=== PATIENT | male | born 1965 | race Caucasian/White ===

== ENCOUNTER 2017-02-17 19:32 | Inpatient (IN) ==
--- NOTE | 2017-02-17 20:01 | Emergency Department Note ---
Disposition Clinical Impression: Dehydration, Hyperglycemia Nausea and vomiting Qualifiers: Vomiting type: unspecified Vomiting Intractability: non-intractable Qualified Code(s): R11.2 - Nausea with vomiting, unspecified Disposition: Admitted As Inpatient Condition: Fair Forms: ED Satisfaction Letter, Work/School Release Time of Disposition: 22:11 General Adult HPI - General Chief complaint: ED Abdominal Pain Stated complaint: Abnormal labs Time Seen by Provider: 02/17/17 19:51 Source: patient, family Limitations: no limitations Nursing Notes Reviewed: Yes Vital Signs Reviewed: Yes - History of Present Illness HPI Narrative: Mr. Asher, a 51-year-old male, presents from home after a phone call from his urologist, Dr. Britt, who advised him to come to emergency department for, "abnormal labs." Patient has had nausea with persistent vomiting onset Friday evening. Patient believed he had a nephrolithiasis however his urologist said he does not have a nephrolithiasis. He has had decreased by mouth intake since. No coffee-ground emesis, no hematemesis. PMH: GERD, nephrolithiasis,, diabetes ROS: Positive: Nausea, vomiting, epigastric abdominal pain Negative: Fever, chills, diarrhea, constipation, chest pains, palpitations, dyspnea, unusual back pains, recent travel Pain Scale: 6 - Related Data Allergies Allergy/AdvReac Type Severity Reaction Status Date / Time No Known Allergies Allergy Verified 02/17/17 19:43 All systems ED: reviewed and negative except as stated. Review of Systems: As Per HPI Past Medical History - Past Medical History Medical history: Reports: diabetes, kidney stones Surgical history: Reports: herniorrhaphy Psychiatric history: Reports: no psych history - Social History Smoking Status: Current every day smoker Alcohol use: Reports: none Drug use: Reports: none Physical Exam Vital Signs Reviewed General: Patient is alert, oriented, and in no acute distress. HEENT: No facial asymmetry. Head is normocephalic and atraumatic. Oral mucosa tacky. Trachea midline. Cardiovascular: Heart regular rate and rhythm without clicks, rubs, gallops, or murmurs. No JVD. PMI nondisplaced. Bilateral radial pulses 2/4 equal. No pedal edema. Respiratory: Symmetric chest rise with good respiratory effort. Bilateral breath sounds are clear without wheezing, crackles, or rhonchi. Abdomen: Bowel sounds present normoactive x-4 quadrants. Abdomen is soft, nondistended, and nontender. No organomegaly noted. Neuro: GCS 15. Psych: Patient's affect is appropriate for situation. - General Limitations: no limitations General appearance: alert, in no apparent distress Course Course Narrative: Patient's nausea improved with IV Zofran. We will continue IV rehydration. He also has hiccups, will provide Thorazine for symptomatic management. I discussed with the patient and his the option of discharge home with by mouth Zofran and by mouth rehydration versus admission. Patient still clinically appears dehydrated and prefers admission. Patient is hyperglycemic, alkalotic, with serum ketones. Will provide 10 units of regular insulin subcutaneous with continued IV rehydration. I discussed the patient with the admitting hospitalist, Dr. Chacko, who agrees to accept the patient for continued evaluation and management. Vital Signs Temperature 98.8 F 02/17/17 19:43 Pulse Rate 124 02/17/17 19:43 Respiratory Rate 18 02/17/17 19:43 Blood Pressure 146/84 02/17/17 19:43 O2 Sat by Pulse Oximetry 94 02/17/17 19:43 Temperature 98.8 F 02/17/17 19:43 Pulse Rate 85 02/17/17 21:42 Respiratory Rate 18 02/17/17 21:42 Blood Pressure 149/92 02/17/17 21:42 O2 Sat by Pulse Oximetry 95 02/17/17 21:42 Oxygen Delivery Oxygen Delivery Room Air Medical Decision Making - Lab Data Result diagrams: 02/17/17 20:26 02/17/17 20:26 Lab Results 02/17/17 02/17/17 02/17/17 Range/Units 19:48 20:26 20:26 WBC 21.3 H (4.3-11.1) K/mcL RBC 6.08 H (4.19-5.50) M/mcL Hgb 16.8 (12.9-16.9) g/dL Hct 50.0 (37.5-50.1) % MCV 82.2 L (83.0-100.0) fL MCH 27.6 L (28.0-33.3) pg MCHC 33.6 (31.6-35.5) g/dL RDW 12.4 (11.5-14.5) % Plt Count 391 (140-400) K/mcL MPV 9.7 (9.4-12.4) fL Immature Gran % 0.7 (0-4) % Seg Neutrophils % 85.2 % Lymphocytes % 6.4 % Monocytes % 7.5 % Eosinophils % 0.0 % Basophils % 0.2 % Neutrophils # 18.2 H (1.6-8.9) K/mcL Lymphocytes # 1.4 (0.6-4.6) K/mcL Monocytes # 1.6 H (0.0-1.3) K/mcL Eosinophils # 0.0 (0.0-0.6) K/mcL Basophils # 0.0 (0.0-0.2) K/mcL VBG pH (7.32-7.42) pH Units VBG pCO2 (41-51) mmHg VBG pO2 (25-50) mmHg VBG HCO3 (21-27) mEq/L Sodium 135 L (136-145) mEq/L Potassium 3.5 (3.5-4.5) mEq/L Chloride 87 L (98-109) mEq/L Carbon Dioxide 32 H (19-29) mEq/L BUN 41 H (8-26) mg/dL Creatinine 1.20 (0.72-1.25) mg/dL Est GFR ( Amer) > 60 (> 60) Est GFR (Non-Af Amer) > 60 (> 60) BUN/Creatinine Ratio 34 H (6-26) Glucose 396 H (70-99) mg/dL POC Glucose 363 H (58-89) Calculated Osmolality 307 H (280-300) Calcium 9.9 (8.6-10.8) mg/dL Magnesium (1.6-2.6) mg/dL Total Bilirubin 1.1 (0.2-1.2) mg/dL AST 10 (5-34) Units/L ALT 10 (0-55) Units/L Alkaline Phosphatase 154 H (38-126) Units/L Serum Total Protein 8.6 H (6.0-8.3) g/dL Albumin 3.8 (3.5-5.0) g/dL Globulin 4.8 H (2.4-3.5) g/dL Albumin/Globulin Ratio 0.8 L (1.1-2.2) Lipase 24 (8-78) Units/L Beta-Hydroxybutyric Acd 1.45 H (0.02-0.27) mmol/L 02/17/17 02/17/17 Range/Units 20:26 20:47 WBC (4.3-11.1) K/mcL RBC (4.19-5.50) M/mcL Hgb (12.9-16.9) g/dL Hct (37.5-50.1) % MCV (83.0-100.0) fL MCH (28.0-33.3) pg MCHC (31.6-35.5) g/dL RDW (11.5-14.5) % Plt Count (140-400) K/mcL MPV (9.4-12.4) fL Immature Gran % (0-4) % Seg Neutrophils % % Lymphocytes % % Monocytes % % Eosinophils % % Basophils % % Neutrophils # (1.6-8.9) K/mcL Lymphocytes # (0.6-4.6) K/mcL Monocytes # (0.0-1.3) K/mcL Eosinophils # (0.0-0.6) K/mcL Basophils # (0.0-0.2) K/mcL VBG pH 7.49 H (7.32-7.42) pH Units VBG pCO2 53 H (41-51) mmHg VBG pO2 65 H (25-50) mmHg VBG HCO3 40 H (21-27) mEq/L Sodium (136-145) mEq/L Potassium (3.5-4.5) mEq/L Chloride (98-109) mEq/L Carbon Dioxide (19-29) mEq/L BUN (8-26) mg/dL Creatinine (0.72-1.25) mg/dL Est GFR ( Amer) (> 60) Est GFR (Non-Af Amer) (> 60) BUN/Creatinine Ratio (6-26) Glucose (70-99) mg/dL POC Glucose (58-89) Calculated Osmolality (280-300) Calcium (8.6-10.8) mg/dL Magnesium 2.3 (1.6-2.6) mg/dL Total Bilirubin (0.2-1.2) mg/dL AST (5-34) Units/L ALT (0-55) Units/L Alkaline Phosphatase (38-126) Units/L Serum Total Protein (6.0-8.3) g/dL Albumin (3.5-5.0) g/dL Globulin (2.4-3.5) g/dL Albumin/Globulin Ratio (1.1-2.2) Lipase (8-78) Units/L Beta-Hydroxybutyric Acd (0.02-0.27) mmol/L Attestation Statement - Attestation Attestation: I examined this patient and my medical decision-making was reviewed with the Resident Physician. I agree with the documented findings, disposition and treatment plan as described except to the extent set forth below. [id number] time provided Patient clutching an emesis bag at the time of my exam. He was sent at the recommendation of the urologist due to abnormal labs. Labs dated 02/17/17 reviewed by me including CBC and chemistry profile.
[2017-02-17] MEDS ORDERED: Ondansetron 4 MG/2 ML VIAL IVP ONE (20:05)
[2017-02-17] MEDS ORDERED: 0.9 % Sodium Chloride 1,000 ML IVC ONE ×2 (20:05→21:42)
[2017-02-17] MEDS ORDERED: Famotidine 20 MG/2 ML VIAL IVP ONE (20:07)
[2017-02-17 20:40] LABS: Basophils % 0.2 %; Hemoglobin 16.8 g/dL (12.9-16.9); Immature Granulocytes % 0.7 % (0-4); Lymphocytes # 1.4 K/mcL (0.6-4.6); Lymphocytes % 6.4 %; Mean Corpuscular HGB Conc 33.6 g/dL (31.6-35.5); Mean Corpuscular Hemoglobin 27.6 pg (28.0-33.3); Mean Corpuscular Volume 82.2 fL (83.0-100.0); Mean Platelet Volume 9.7 fL (9.4-12.4); Monocytes # 1.6 K/mcL (0.0-1.3); Monocytes % 7.5 %; Neutrophils # 18.2 K/mcL (1.6-8.9); Platelet Count 391 K/mcL (140-400); Red Blood Count 6.08 M/mcL (4.19-5.50); Red Cell Distribution Width 12.4 % (11.5-14.5); Segmented Neutrophils % 85.2 %
[2017-02-17 20:50] LABS: VBG HCO3 40 mEq/L (21-27); VBG PCO2 53 mmHg (41-51); VBG PH 7.49 pH Units (7.32-7.42); VBG PO2 65 mmHg (25-50)
[2017-02-17 20:56] LABS: Alanine Aminotransferase 10 Units/L (0-55); Albumin 3.8 g/dL (3.5-5.0); Albumin/Globulin Ratio 0.8 (1.1-2.2); Alkaline Phosphatase 154 Units/L (38-126); Aspartate Amino Transferase 10 Units/L (5-34); BUN/Creatinine Ratio 34 (6-26); Bilirubin,Total 1.1 mg/dL (0.2-1.2); Blood Urea Nitrogen 41 mg/dL (8-26); Calcium 9.9 mg/dL (8.6-10.8); Carbon Dioxide 32 mEq/L (19-29); Chloride 87 mEq/L (98-109); Globulin 4.8 g/dL (2.4-3.5); Glucose 396 mg/dL (70-99); Lipase 24 Units/L (8-78); Osmolality,Calculated 307 (280-300); Potassium 3.5 mEq/L (3.5-4.5); Sodium 135 mEq/L (136-145); Total Protein 8.6 g/dL (6.0-8.3); eGFR For African Americans > 60 (> 60); eGFR For Non-African Americans > 60 (> 60)
[2017-02-17 21:30] LABS: Beta-Hydroxybutyric Acid 1.45 mmol/L (0.02-0.27)
[2017-02-17] MEDS ORDERED: chlorproMAZINE 25 MG TABLET PO STA (21:30)
[2017-02-17] MEDS ORDERED: Insulin Regular, Human 100 UNIT/ML SQ ONE (21:55)
[2017-02-17 22:27] LABS: Bilirubin,Urine Negative (Negative); Blood,Urine Negative (Negative); Clarity,Urine Clear (Clear); Color,Urine Yellow (Yellow); Glucose,Urine (UA) >=1000 mg/dL (Normal); Ketones,Urine 15 mg/dL (Negative); Leukocyte Esterase,Urine Negative (Negative); Nitrite,Urine Negative (Negative); Protein,Urine 30 mg/dL (Neg-Trace); Specific Gravity,Urine > 1.030 (1.010-1.025); Urobilinogen,Urine Normal (Normal)
[2017-02-17 22:29] LABS: Bacteria,Urine None Seen per hpf (None-Few); Hyaline Casts,Urine None Seen per lpf (None-Few); RBC,Urine 0-3 per hpf (0-3); Squamous Epithelial Cell,Urine Moderate per lpf (None-Few); WBC,Urine 0-3 per hpf (0-3)
[2017-02-18] MEDS ORDERED: 0.9 % Sodium Chloride 1,000 ML IVC ONE (00:20)
--- NOTE | 2017-02-18 00:53 | Internal Med History&Physical ---
<Joe Lopez - Last Filed: 02/18/17 01:23> Date of Encounter: 02/18/17 Time of Encounter: 00:49 Assessment and Plan (1) DKA (diabetic ketoacidoses) Current visit: Yes Status: Acute - BS of 396 on admission, A1c pending - Acid base showing mixed anion gap acidosis with metabolic alkalosis - betahydroxybutryic acid of 1.27, AG of 16. - IV insulin drip with DKA protocol. Running D5 NS with 10 mEq of K at 150 - K of 3.5, Elevated WBC in 23s - BMPs q4 hours - Possible brought on by viral gastroenteritis. Qualifiers: Diabetes mellitus type: type 2 Diabetes mellitus complication detail: without coma Qualified Code(s): E13.10 - Other specified diabetes mellitus with ketoacidosis without coma (2) Nausea and vomiting Current visit: Yes Status: Acute - Possibly secondary to viral gastroenteritis - Contributing to metabolic alkalosis with contraction - Resolved with Zofran. Still dehydrated clinically. Will continue IV fluids per DKA protocol above. Qualifiers: Vomiting type: unspecified Vomiting Intractability: non-intractable Qualified Code(s): R11.2 - Nausea with vomiting, unspecified (3) Dehydration Current visit: Yes Status: Acute - Fluids running for DKA protocol above. (4) DM type 2 (diabetes mellitus, type 2) Current visit: Yes Status: Chronic - Hyperglycemic in DKA - A1c pending - Pt admits to poor diet control, not taking BS - Diabetic education consult - Management as above. - Pt states compliance with metformin. 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 Asher is a 51 year old male with past medical history of type 2 diabetes presents emergency department with a complaint of nausea and vomiting 3-4 days. He states this had almost continuous vomiting today without evidence of hematemesis. He is also complaining of decreased oral intake during this time. No complaints of diarrhea or constipation, last bowel movement on Friday. Denies any symptoms of fevers, chills, chest pain, shortness of breath, numbness, tingling. Denies any sick contacts or recent travel. He does admit to poor glycemic control. He does not monitor his diet, or check his blood sugars however he does state that he takes his metformin as prescribed. In the emergency department, vital signs are significant for a pulse of 124. Labs were significant for WBC of 21.3, venous blood gas showing pH 7.49, CO2 of 53, HCO3 of 40. Glucose of 396, osmolality of 307, bicarbonate 32, negative lipase, beta hydroxybutyric acid of 1.45. UA shows greater than 1000 glucose, ketones 15. Chest x-ray was negative for acute cardiopulmonary disease. Past Med Surg Social Fam HX - Past Medical History Medical history: diabetes, kidney stones Psychiatric history: no psych history - Past Surgical History Surgical History: herniorrhaphy - Social History Smoking Status: Current every day smoker Smokeless Tobacco Status: No Alcohol use: none Drug use: none - Family History Mother Adopted: [place]: Anca Wesley Age: 74 Family Member Ethnicity: Non- Living Status: Still Living Hx Family Cardiac Disorders: No Hx Family Respiratory Disorders: No Hx Family Cancer: No Hx Family GI Disorders: No Hx Family Genitourinary Disorders: No Hx Family Endocrine Disorder: No Hx Family Musculoskeletal Disorders: No Hx Family Neuromuscular Disorders: No Hx Family Neurologic Disorders: No Hx Family HEENT Disorders: No Hx Family Autoimmune Disorders: No Hx Family Reproductive Disorders: No Hx Family Psychosocial Disorders: No Hx Family Medical Disorders: No Internal Medicine - H&P: Meds Promethazine [Phenergan] 25 mg PO Q6H PRN 02/17/17 [History] Sucralfate [Carafate] 1 gm PO QID 02/17/17 [History] metFORMIN [Glucophage] 1,000 mg PO BID 02/17/17 [History] 3 Allergy/AdvReac Type Severity Reaction Status Date / Time No Known Allergies Allergy Verified 02/17/17 19:43 All Systems PM: A 10-system review of systems was performed and is negative for pertinent findings except as documented above in the HPI. - Constitutional Constitutional: weakness, no anorexia, no chills, no fatigue, no fever(s), no lethargy - Cardiovascular Cardiovascular ROS IM: no chest pain, no diaphoresis, no dyspnea, no dyspnea on exertion, no edema, no lightheadedness - Respiratory Respiratory: no cough, no dyspnea, no dyspnea on exertion - Gastrointestinal Gastrointestinal: constipation, early satiety, nausea, vomiting, no abdominal pain, no diarrhea, no hematemesis, no hematochezia, no melena - Genitourinary Genitourinary ROS male: no dysuria - Musculoskeletal Musculoskeletal ROS IM: no numbness, no tingling - Integumentary Integumentary IM: no rash - Neurological Neurological ROS: weakness, no focal weakness, no headache(s), no numbness, no tingling - Constitutional Vitals: Temp Pulse Resp BP Pulse Ox 98.0 F 85 17 164/85 94 02/18/17 00:13 02/18/17 00:13 02/18/17 00:13 02/18/17 00:13 02/18/17 00:13 Exam: Gen.: Vitals noted. No acute distress. AAOx3. 1-year-old male resting comfortably in bed HEENT: PERRL, oropharynx clear, Normocephalic, atraumatic. Dry mucous membranes Cardiac: RRR, no murmur, +S1/S2 Pulmonary: CTA bilaterally, no wheezes, rales or rhonchi, equal chest expansion Abdomen: soft, mildly tender in epigastric region, BS noted, no guarding MSK: ROM intact, no joint swelling noted Extremities: no BLE edema, nontender calf, no cyanosis or clubbing Neuro: A&Ox3, moves all extremities, no focal deficits Psych: Appropriate mood and behavior Internal Med - H&P Results - Labs CBC & Chem 7: 02/17/17 20:26 02/17/17 20:26 <Crispin Ruelas H - Last Filed: 02/18/17 01:58> Date of Encounter: 02/18/17 Internal Medicine - H&P: HPI History of present illness: Mr. Asher is a 51 year old male All Systems PM: A 10-system review of systems was performed and is negative for pertinent findings except as documented above in the HPI. - Constitutional Vitals: Temp Pulse Resp BP Pulse Ox 98.0 F 85 17 164/85 94 02/18/17 00:13 02/18/17 00:13 02/18/17 00:13 02/18/17 00:13 02/18/17 00:13 Internal Med - H&P Results - Labs CBC & Chem 7: 02/17/17 20:26 02/17/17 20:26 - Attending Attestation Intractable nausea and vomiting secondary to viral gastroenteritis, DKA Insulin drip, start D5 with half normal saline and 10 mEq of KCl at 150 mL per hour Dehydration Time spent on this admission 40 minutes. Protonix IV for GI prophylaxis. The patient will be admitted as inpatient, expected stay more than 2 midnights. Full code. I examined this patient and my medical decision-making was reviewed with the Resident Physician. I agree with the documented findings, disposition and treatment plan as described except to the extent set forth below.
[2017-02-18] MEDS ORDERED: *HR* HYDROcodone/Acet 5/325 mg TABLET PO PRN (00:55)
[2017-02-18] MEDS ORDERED: Ondansetron 4 MG/2 ML VIAL IVP PRN (00:55)
[2017-02-18] MEDS ORDERED: Acetaminophen 325 MG TABLET PO PRN (00:55)
[2017-02-18] MEDS ORDERED: Naloxone 0.4 MG/ML INJ IVP PRN (00:55)
[2017-02-18] MEDS ORDERED: *HR* Dextrose 50 % in Water (Syg) 50 ML SYRINGE IVP PRN (00:57)
[2017-02-18] MEDS ORDERED: Dextrose Gel 15 GM PO PRN ×3 (00:57→11:10)
[2017-02-18] MEDS ORDERED: D5% in Water 1,000 ML IVC PRN (00:57)
[2017-02-18] MEDS ORDERED: Insulin Human Regular 100 UNIT in 0.9 % Sodium Chloride 100 ML IVC SCH (01:30)
[2017-02-18 02:19] LABS: Potassium 3.5 mEq/L (3.5-4.5); Sodium 137 mEq/L (136-145)
[2017-02-18 02:20] LABS: BUN/Creatinine Ratio 40 (6-26); Blood Urea Nitrogen 31 mg/dL (8-26); Carbon Dioxide 27 mEq/L (19-29); Chloride 100 mEq/L (98-109); Glucose 209 mg/dL (70-99); Hemoglobin A1C 9.1 %; Osmolality,Calculated 297 (280-300); eGFR For African Americans > 60 (> 60); eGFR For Non-African Americans > 60 (> 60)
[2017-02-18 02:22] LABS: Calcium 8.4 mg/dL (8.6-10.8)
[2017-02-18] MEDS: D5% in 0.45% NACL w KCl 10 MEQ/1,000 ML MLS IVC SCH ×2 (02:29→09:23)
[2017-02-18] MEDS: Pantoprazole 40 MG VIAL IVP SCH (03:33)
[2017-02-18] MEDS: *HR* Heparin 5,000 UNIT/ML VIAL SQ SCH ×2 (06:23→17:36)
[2017-02-18] MEDS ORDERED: Insulin LISPRO 300 UNITS/3 ML VIAL SQ SCH (07:30)
[2017-02-18 08:17] LABS: Basophils % 0.2 %; Eosinophils # 0.1 K/mcL (0.0-0.6); Eosinophils % 0.4 %; Hematocrit 44.5 % (37.5-50.1); Hemoglobin 14.4 g/dL (12.9-16.9); Immature Granulocytes % 0.5 % (0-4); Immature Platelets 2.8 % (1.1-6.1); Lymphocytes # 2.3 K/mcL (0.6-4.6); Lymphocytes % 13.3 %; Mean Corpuscular HGB Conc 32.4 g/dL (31.6-35.5); Mean Corpuscular Volume 83.5 fL (83.0-100.0); Mean Platelet Volume 9.6 fL (9.4-12.4); Monocytes # 1.6 K/mcL (0.0-1.3); Neutrophils # 13.4 K/mcL (1.6-8.9); Platelet Count 302 K/mcL (140-400); Red Blood Count 5.33 M/mcL (4.19-5.50); Red Cell Distribution Width 12.4 % (11.5-14.5); Segmented Neutrophils % 76.6 %
[2017-02-18 08:47] LABS: BUN/Creatinine Ratio 27 (6-26); Blood Urea Nitrogen 21 mg/dL (8-26); Calcium 8.5 mg/dL (8.6-10.8); Carbon Dioxide 26 mEq/L (19-29); Chloride 102 mEq/L (98-109); Glucose 209 mg/dL (70-99); Osmolality,Calculated 293 (280-300); Sodium 137 mEq/L (136-145); eGFR For African Americans > 60 (> 60); eGFR For Non-African Americans > 60 (> 60)
[2017-02-18] MEDS: Sucralfate 1 GM TABLET PO SCH ×4 (09:25→20:55)
[2017-02-18] MEDS: Insulin LISPRO 300 UNITS/3 ML VIAL SQ SCH ×3 (11:59→20:59)
--- NOTE | 2017-02-18 14:27 | Internal Med Progress Note ---
Date of Encounter: 02/18/17 Time of Encounter: 11:50 - Assessment and plan (1) DKA (diabetic ketoacidoses) Current Visit: Yes Status: Acute Assessment and plan: Type 2 diabetes mellitus, [id number], hypoglycemia - with diabetic ketoacidosis without coma - DKA now improved, possibly brought on by viral gastroenteritis Continue IV fluids, insulin sliding scale, IV insulin has been discontinued, anion gap is now closed, ADA diet DKA protocol has been followed Chest x-ray - no acute cardiopulmonary process EKG - sinus tachycardia with no acute ST-T changes Beta hydroxybutyric acid - 1.5 HbA1c - 9.1 Cardiac monitoring, labs in a.m., monitor closely, transfer to regular floor Qualifiers: Diabetes mellitus type: type 2 Diabetes mellitus complication detail: without coma Qualified Code(s): E13.10 - Other specified diabetes mellitus with ketoacidosis without coma (2) Nausea and vomiting Current Visit: Yes Status: Acute Assessment and plan: Probable acute viral gastroenteritis - causing nausea and vomiting with dehydration - symptoms now improved Continue IV fluids, IV Protonix, IV Zofran as needed Continue Carafate Patient is now tolerating oral diet Qualifiers: Vomiting type: unspecified Vomiting Intractability: non-intractable Qualified Code(s): R11.2 - Nausea with vomiting, unspecified (3) DVT prophylaxis Current Visit: Yes Status: Acute Assessment and plan: Continue heparin subcutaneous - Time Spent With Patient 25 - 35 minutes - Subjective Interval history: Examined this morning. Patient is now awake and alert. Not in any distress. Denies chest pain or shortness of breath. No fever. Hemodynamically stable. Sitting up comfortably and tolerating diet. No other acute events or complaints. Admitted for DKA last night. Anion gap is now closed. IV insulin has been stopped. Patient is currently on subcutaneous insulin. Electrolyte abnormalities and now improved. HbA1c is 9.1. Patient does admit to noncompliance with medication and diet. - Constitutional Vitals: Temp Pulse Resp BP Pulse Ox 98.3 F 78 14 163/94 96 02/18/17 12:25 02/18/17 12:00 02/18/17 12:00 02/18/17 12:00 02/18/17 12:00 General appearance: Present: cooperative, A&O X 3, pleasant, no acute distress, underweight, answers questions appropriately - Head Head exam: Present: atraumatic - Eye Eye exam: Present: EOMI - ENT ENT exam: Present: mucous membranes dry - Respiratory Respiratory exam: Present: CTAB. Absent: accessory muscle use, chest wall tenderness, rales, rhonchi, wheezes, tachypnea - Cardiovascular Cardiovascular exam: Present: RRR, +S1, +S2 - GI/Abdominal GI/Abdominal exam: Present: soft. Absent: distended, firm, guarding, tenderness - Extremities Exam Extremities exam: Present: radial pulses palpable and symmetrical. Absent: calf tenderness, cyanotic, pedal edema - Neurological Exam Neurological exam: Present: alert, oriented X3, no focal deficits. Absent: facial droop, speech deficit - Psychiatric Psychiatric exam: Present: flat affect Internal Medicine: Result - Labs CBC & Chem 7: 02/18/17 07:59 02/18/17 07:59 Labs: Short CBC 02/18/17 Range/Units 07:59 WBC 17.5 H (4.3-11.1) K/mcL Hgb 14.4 D (12.9-16.9) g/dL Hct 44.5 (37.5-50.1) % Plt Count 302 (140-400) K/mcL Neutrophils # 13.4 H (1.6-8.9) K/mcL BMP 02/18/17 07:59 Sodium 137 Potassium 4.0 Chloride 102 Carbon Dioxide 26 BUN 21 D Creatinine 0.79 Glucose 209 H Calcium 8.5 L Consult Discharge Plan - Plan Referrals: Hardeep Sumner Jr, MD [Primary Care Provider] -
[2017-02-19] MEDS: Insulin LISPRO 300 UNITS/3 ML VIAL SQ SCH ×4 (01:23→12:08)
[2017-02-19 05:24] LABS: Basophils % 0.3 %; Eosinophils # 0.1 K/mcL (0.0-0.6); Eosinophils % 0.9 %; Hemoglobin 15.5 g/dL (12.9-16.9); Immature Granulocytes % 0.4 % (0-4); Lymphocytes % 13.7 %; Mean Corpuscular Hemoglobin 27.6 pg (28.0-33.3); Mean Corpuscular Volume 83.8 fL (83.0-100.0); Mean Platelet Volume 9.5 fL (9.4-12.4); Monocytes # 1.1 K/mcL (0.0-1.3); Monocytes % 7.4 %; Neutrophils # 11.2 K/mcL (1.6-8.9); Platelet Count 290 K/mcL (140-400); Red Blood Count 5.61 M/mcL (4.19-5.50); Red Cell Distribution Width 12.2 % (11.5-14.5); Segmented Neutrophils % 77.3 %
[2017-02-19 05:50] LABS: BUN/Creatinine Ratio 19 (6-26); Blood Urea Nitrogen 15 mg/dL (8-26); Calcium 9.1 mg/dL (8.6-10.8); Carbon Dioxide 27 mEq/L (19-29); Chloride 99 mEq/L (98-109); Glucose 198 mg/dL (70-99); Magnesium 1.9 mg/dL (1.6-2.6); Osmolality,Calculated 284 (280-300); Potassium 3.9 mEq/L (3.5-4.5); Sodium 134 mEq/L (136-145); eGFR For African Americans > 60 (> 60); eGFR For Non-African Americans > 60 (> 60)
[2017-02-19] MEDS: Pantoprazole 40 MG VIAL IVP SCH (06:23)
[2017-02-19] MEDS: *HR* Heparin 5,000 UNIT/ML VIAL SQ SCH (06:24)
[2017-02-19] MEDS ORDERED: 0.9 % Sodium Chloride 1,000 ML IVC SCH (07:30)
[2017-02-19] MEDS: Sucralfate 1 GM TABLET PO SCH ×2 (08:55→12:48)
--- NOTE | 2017-02-19 10:40 | Discharge Summary ---
Date of Encounter: 02/19/17 Time of Encounter: 09:15 - Discharge Diagnosis (1) DKA (diabetic ketoacidoses) Priority: Primary Status: Acute Comments: Type 2 diabetes mellitus, dog-peqgzhz-nxwynxxwn, hyperglycemia - with diabetic ketoacidosis without coma - DKA now improved, possibly brought on by viral gastroenteritis IV insulin has been discontinued, anion gap is now closed, ADA diet, DKA protocol has been followed Continue home dose of Metformin Chest x-ray - no acute cardiopulmonary process EKG - sinus tachycardia with no acute ST-T changes Beta hydroxybutyric acid - 1.5 HbA1c - 9.1 Stable for discharge today, return if symptoms worsen, follow up with primary care physician Advised patient to be compliant with medications and also with diet Qualifiers: Diabetes mellitus type: type 2 Diabetes mellitus complication detail: without coma Qualified Code(s): E13.10 - Other specified diabetes mellitus with ketoacidosis without coma (2) Essential hypertension Priority: Secondary Status: Chronic Comments: Newly diagnosed essential hypertension, controlled Add Lisinopril for blood pressure and renal protection (3) Nausea and vomiting Priority: Primary Status: Acute Comments: Probable acute viral gastroenteritis - causing nausea and vomiting with dehydration - symptoms now resolved Continue PO Protonix Patient is now tolerating oral diet Qualifiers: Vomiting type: unspecified Vomiting Intractability: non-intractable Qualified Code(s): R11.2 - Nausea with vomiting, unspecified - Discharge Medications Prescriptions: Lisinopril [Zestril] 10 mg PO DAILY #30 tablet Pantoprazole Sodium [Protonix] 20 mg PO DAILY #30 tab Home Medications: Promethazine [Phenergan] 25 mg PO Q6H PRN 02/17/17 [History] Sucralfate [Carafate] 1 gm PO QID 02/17/17 [History] metFORMIN [Glucophage] 1,000 mg PO BID 02/17/17 [History] Lisinopril [Zestril] 10 mg PO DAILY #30 tablet 02/19/17 [Rx] Pantoprazole Sodium [Protonix] 20 mg PO DAILY #30 tab 02/19/17 [Rx] Allergies/Adverse Reactions: 3 Allergy/AdvReac Type Severity Reaction Status Date / Time No Known Allergies Allergy Verified 02/17/17 19:43 Date of admission: 02/18/17 06:15 Primary care physician: Hardeep Sumner Jr, MD Anticipated date of discharge: 02/19/17 - Patient Status Disposition: Home, Self-Care Condition: Good Functional capacity at discharge: independent ambulation Overall status at discharge: patient is back to baseline - Discharge Instructions Instructions: Lisinopril (By mouth), Pantoprazole (By mouth), Diabetic Ketoacidosis (DC), Diabetes Mellitus Type 2 in Adults (DC), Basic Carbohydrate Counting (DC), Meal Planning with the Plate Model (DC) Follow Up With: Hardeep Sumner Jr, MD [Primary Care Provider] - 02/28/17 2:30 pm () Additional Instructions: PLEASE CHECK YOUR BLOOD GLUCOSE BEFORE MEALS AND AT BEDTIME. (KEEP A LOG OF BLOOD SUGARS AND TAKE TO YOUR DOCTOR). DIABETIC DIET. TAKE MEDS DIRECTED. - Diet and Activity Activity: increase activity as tolerated, resume usual activities as tolerated Diet: diabetic diet Hospital course: Mr. Asher is a 51 year old male with past medical history of diabetes. He presented to the ED with complaints of nausea and vomiting. He denied hematemesis. He was also complaining of decreased by mouth intake. He denied having any diarrhea or constipation. He denied fever or chills or chest pain or shortness of breath. Patient was admitted for diabetic ketoacidosis. His blood glucose was elevated he did have an eye on ABG showed mixed anion gap acidosis with metabolic alkalosis. Beta hydroxybutyric acid was also elevated. Patient was started on IV insulin drip and DKA protocol was followed. His nausea and vomiting most likely due to viral gastroenteritis. His nausea and vomiting is now resolved. Patient's DKA is also resolved. Electrolyte abnormalities have now resolved. His A1c is 9.1. Patient has been noncompliant with his medication and has been noncompliant with his diet. Patient and his have been explained about his condition and plan of care in detail. Advised about compliance. They understood and agreed. No evidence of questions. Patient is currently tolerating oral diet well and ambulating well. Patient was switched to sliding scale insulin ACHS. He has been advised to continue his regular home dose of metformin and advised follow-up with his primary care physician. Patient has been started on lisinopril because his blood pressure has been elevated during his stay. No other acute events or complications during his stay. Patient is being discharged in stable condition. - Time Spent with Patient Total time spent providing and/or coordinating discharge services: Less than 30 minutes - Constitutional Vitals: Temp Pulse Resp BP Pulse Ox 98.8 F 82 18 151/92 96 02/19/17 07:45 02/19/17 07:45 02/19/17 07:45 02/19/17 07:45 02/19/17 07:45 General appearance: Present: cooperative, A&O X 3, pleasant, no acute distress, underweight, answers questions appropriately - Head Head exam: Present: atraumatic - Eye Eye exam: Present: EOMI - ENT ENT exam: Present: mucous membranes moist - Respiratory Respiratory exam: Present: CTAB. Absent: rales, rhonchi, wheezes, tachypnea - Cardiovascular Cardiovascular exam: Present: RRR, +S1, +S2 - GI/Abdominal GI/Abdominal exam: Present: soft. Absent: distended, firm, guarding, tenderness - Extremities Exam Extremities exam: Present: radial pulses palpable and symmetrical. Absent: calf tenderness, cyanotic, pedal edema - Neurological Exam Neurological exam: Present: alert, oriented X3, no focal deficits. Absent: facial droop, speech deficit
[2017-02-19 11:48] VITALS: BP 151/89
[2017-02-19] MEDS ORDERED: Insulin LISPRO 300 UNITS/3 ML VIAL SQ SCH (21:00)
--- NOTE | 2017-02-20 18:18 | Electrocardiograph Report ---
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
== END 2017-02-19 13:06 | disposition home or self-care (01) | DRG 391 ==
LOC: 3NENU 19:32 → EMEROO 19:32 → 3NENU 23:51 → ICNU 02-18 02:08 → 2NNU 02-18 20:06
PROVIDERS: ADMIT Internal Medicine; ATTEND Internal Medicine